=== PATIENT | male | born 1990 | race Caucasian/White ===

== ENCOUNTER 2016-12-18 08:14 | Emergency (ER) | payer SELFPAY ==
[2016-12-18 08:18] VITALS: RESP 18
[2016-12-18] MEDS ORDERED: Naproxen 550 mg Tab PO STA (08:42)
[2016-12-18] MEDS ORDERED: Naproxen 550 mg Tab PO ONE (08:47)
--- NOTE | 2016-12-18 09:28 | C.PDOC ---
History Of Present Illness 25-year-old male, presents to the emergency department with complaints of left ankle pain. Patient states that "two Sundays ago." he was playing football, when he heard a "popping" sensation in ankle, after which he has been experiencing persistent pain and swelling. Patients secondary complaint is left ear pain that started this morning. Denies nausea/vomiting, fevers, chills, numbness/weakness, or any other associated symptoms. No other complaints at this time. Time Seen by Provider: 12/18/16 08:22 Chief Complaint (Nursing): Lower Extremity Problem/Injury History Per: Patient History/Exam Limitations: no limitations Onset/Duration Of Symptoms: Days Current Symptoms Are (Timing): Still Present Severity: Moderate Past Medical History Reviewed: Historical Data, Nursing Documentation, Vital Signs Vital Signs: Last Vital Signs Temp 98.6 F 12/18/16 09:32 Pulse 72 12/18/16 09:32 Resp 18 12/18/16 09:32 BP 126/80 12/18/16 09:32 Pulse Ox 98 12/18/16 10:14 Family History: States: No Known Family Hx - Social History Hx Tobacco Use: Yes Hx Alcohol Use: No Hx Substance Use: No - Immunization History Hx Tetanus Toxoid Vaccination: No Hx Influenza Vaccination: No Hx Pneumococcal Vaccination: No Review Of Systems Except As Marked, All Systems Reviewed And Found Negative. Constitutional: Negative for: Fever ENT: Positive for: Ear Pain (L) Gastrointestinal: Negative for: Vomiting Musculoskeletal: Positive for: Other (Left ankle, pain/swelling) Neurological: Negative for: Weakness, Numbness Physical Exam - Physical Exam Appears: Non-toxic, No Acute Distress Skin: Warm, Dry, No Rash Head: Atraumatic, Normacephalic Eye(s): bilateral: Normal Inspection Ear(s): Bilateral: Other (serumen) Nose: Normal Oral Mucosa: Moist Lips: Normal Appearing Neck: Normal ROM Respiratory: No Accessory Muscle Use Extremity: Tenderness, Capillary Refill (<2 seconds), No Deformity, Swelling, Other (Mild swelling to lateral malleolus with tenderness to palpation) ED Course And Treatment O2 Sat by Pulse Oximetry: 98 Progress Note: XR Ankle ordered and reviewed. Patients ankle placed in debi bandage, air caste and crutches. Patient treated with PO Naproxen. Disposition Counseled Patient/Family Regarding: Studies Performed, Diagnosis, Need For Followup, Rx Given - Disposition Referrals: Mikel Velasco MD [Staff Provider] - [facility] [Outside] [facility] [Outside] Disposition: HOME/ ROUTINE Disposition Time: 09:40 Condition: STABLE Additional Instructions: FOLLOW UP WITH ORTHOPEDICS/PODIATRY WITHIN 1 WEEK USE MEDICATIONS DIRECTED RETURN TO ER IF SYMPTOMS WORSEN Prescriptions: Carbamide Peroxide [Debrox 15 Ml] 5 drop OT BID #1 bottle Naproxen [Naprosyn Tab] 375 mg PO BID PRN #20 tab PRN Reason: pain Instructions: Ankle Sprain (ED), Cerumen Impaction (ED), Ankle Stirrup Splint ( ED) Print Language: WOLOF - POA Present On Arrival: Falls Or Trauma - Clinical Impression Clinical Impression: Left ankle sprain, Cerumen impaction - Scribe Statement The provider has reviewed the documentation as recorded by the Scribe (Joe Marlow) All medical record entries made by the Scribe were at my direction and personally dictated by me. I have reviewed the chart and agree that the record accurately reflects my personal performance of the history, physical exam, medical decision making, and the department course for this patient. I have also personally directed, reviewed, and agree with the discharge instructions and disposition.
[2016-12-18 09:33] VITALS: BP 126/80; PULSE 72; TEMP 98.6
[2016-12-18 10:00] VITALS: O2SAT 98
--- NOTE | 2016-12-18 11:14 | RAD ---
PROCEDURE: Left Ankle Radiographs. HISTORY: LEFT ANKLE PAIN S/P INJURY COMPARISON: None FINDINGS: BONES: Bone alignment and mineralization are normal. There is no acute displaced fracture or bone destruction JOINTS: Normal. Ankle mortise maintained. Talar dome intact SOFT TISSUES: Normal. OTHER FINDINGS: None. IMPRESSION: No acute fracture or dislocation.
== END 2016-12-18 10:15 | disposition home or self-care (01) ==
LOC: C.ER 08:14
DX: S93.402A Sprain of unspecified ligament of left ankle, initial encounter (principal); X50.0XXA Overexertion from strenuous movement or load, initial encounter; Y93.61 Activity, american tackle football; Y92.39 Other specified sports and athletic area as the place of occurrence of the external cause; H61.23 Impacted cerumen, bilateral
CPT/HCPCS: 73610; 97116; 97161; 99285; G8978; G8979; G8980

== ENCOUNTER 2016-12-26 07:14 | Emergency (ER) | payer SELFPAY ==
[2016-12-26 07:18] VITALS: BP 118/77; PULSE 86; RESP 18; TEMP 98.5; O2SAT 98
[2016-12-26] MEDS ORDERED: guaiFENesin DM 100 mg-10 mg/5 ml UD PO STA (07:33)
[2016-12-26] MEDS ORDERED: guaiFENesin DM 100 mg-10 mg/5 ml UD ONE (07:39)
--- NOTE | 2016-12-26 07:44 | C.PDOC ---
History Of Present Illness 26 year old male presents to the ED with complaints of a "pounding" headache and generalized body aches beginning this morning around 3am. Patient notes a dry cough beginning a few days ago, and feeling warm but has not taken temperature. He denies chills, nausea, vomiting, sick contacts, or abdominal pain. Time Seen by Provider: 12/26/16 07:27 Chief Complaint (Nursing): Headache History Per: Patient History/Exam Limitations: no limitations Onset/Duration Of Symptoms: Hrs (headache and bodyaches beginning this morning) , Days (cough began a few days ago) Current Symptoms Are (Timing): Still Present Recent travel outside of the [place]: No Past Medical History Reviewed: Historical Data, Nursing Documentation, Vital Signs Vital Signs: Last Vital Signs Temp 98.5 F 12/26/16 07:18 Pulse 86 12/26/16 07:18 Resp 18 12/26/16 07:18 BP 118/77 12/26/16 07:18 Pulse Ox 98 12/26/16 08:01 - Medical History PMH: No Chronic Diseases Surgical History: No Surg Hx Family History: States: Unknown Family Hx - Social History Hx Tobacco Use: Yes Hx Alcohol Use: No Hx Substance Use: No - Immunization History Hx Tetanus Toxoid Vaccination: No Hx Influenza Vaccination: No Hx Pneumococcal Vaccination: No Review Of Systems Constitutional: Positive for: Malaise, Other (generalized body aches ). Negative for: Fever, Chills ENT: Negative for: Ear Pain, Nose Congestion, Throat Pain Cardiovascular: Negative for: Chest Pain Respiratory: Positive for: Cough. Negative for: Shortness of Breath Gastrointestinal: Negative for: Nausea, Vomiting, Abdominal Pain, Diarrhea Skin: Negative for: Rash Neurological: Positive for: Headache Physical Exam - Physical Exam Appears: Non-toxic, No Acute Distress Skin: Warm, Dry Head: Atraumatic, Normacephalic Eye(s): bilateral: Normal Inspection, PERRL, EOMI Ear(s): Bilateral: Normal Nose: Normal, No Discharge Oral Mucosa: Moist Throat: Normal, No Erythema, No Exudate Neck: Normal ROM, Supple Chest: Symmetrical, No Deformity Cardiovascular: Rhythm Regular Respiratory: Normal Breath Sounds, No Rhonchi, No Wheezing Gastrointestinal/Abdominal: Normal Exam, Soft, No Tenderness, No Guarding Extremity: Normal ROM, No Tenderness Neurological/Psych: Oriented x3, Normal Speech Gait: Steady ED Course And Treatment O2 Sat by Pulse Oximetry: 98 (room air ) Progress Note: Patient is resting comfortably, is tolerating PO, and no longer has headache. Patient was instructed to follow up with physician in 1-2 days. Reassessment Condition: Improved Medical Decision Making Medical Decision Makin26 year old male with subjective fever, cough, malaise and headache. Exam was unremarkable. Motrin and Robitussin was given. Patient remained afebrile, alert and in no acute distress. Symptoms likely viral. Recommend fluids, rest and supportive treatment. Disposition Counseled Patient/Family Regarding: Diagnosis, Need For Followup, Rx Given - Disposition Disposition: HOME/ ROUTINE Disposition Time: 07:41 Condition: STABLE Additional Instructions: You have viral upper respiratory infection. Take Tylenol or Motrin alternating every 4-6 hours for Fever 100.4F or higher. Rest and drink plenty of fluids. Follow up with your primary medical doctor or clinic in 2-5 days for further evaluation. Prescriptions: Ibuprofen [Motrin] 1 tab PO TID PRN #30 tab PRN Reason: Pain Promethazine DM [Phenergan DM Syrup] 5 ml PO Q8 PRN #3 oz PRN Reason: Cough Instructions: Upper Respiratory Infection (ED) Forms: [facility] (I[place]ic) - POA Present On Arrival: None - Clinical Impression Clinical Impression: Upper respiratory infection - Scribe Statement The provider has reviewed the documentation as recorded by the Scribe Marielle Wright All medical record entries made by the Scribe were at my direction and personally dictated by me. I have reviewed the chart and agree that the record accurately reflects my personal performance of the history, physical exam, medical decision making, and the department course for this patient. I have also personally directed, reviewed, and agree with the discharge instructions and disposition.
== END 2016-12-26 08:15 | disposition home or self-care (01) ==
LOC: C.ER 07:14
DX: J06.9 Acute upper respiratory infection, unspecified (principal); F17.210 Nicotine dependence, cigarettes, uncomplicated